=== PATIENT | female | born 1960 | race Two or more races ===

== ENCOUNTER 2017-01-31 06:51 | Day surgery (SDC) | payer SELFPAY ==
[2017-01-31] VITALS (9 sets, daily range): BP systolic 111–131; BP diastolic 50–78
[~2017-01-31] VITALS: Ht 165.1 cm; Wt 55.8 kg
[~2017-01-31 06:51] MED LIST: ASACOL HD800 MG ORAL; URSODIOL300 MG ORAL
[2017-01-31] MEDS ORDERED: Propofol 10mg/ml 20ml IV ONE (06:52)
[2017-01-31] MEDS ORDERED: Midazolam 2mg/2ml Inj ONE (06:52)
[2017-01-31] MEDS ORDERED: fentaNYL 100 mcg/2 mL IV ONE (06:52)
--- NOTE | 2017-01-31 08:18 | Pre-Procedure Note/Attestation ---
Pre-Procedure Note/Attestation Complete Prior to Procedure Planned Procedure: not applicable Procedure Narrative: esophagogastroduodenoscopy and colonoscopy Indications for Procedure Pre-Operative Diagnosis: abd pain, screening colon eval, UC Attestation I attest that I discussed the nature of the procedure; its benefits; risks and complications; and alternatives (and the risks and benefits of such alternatives ), prior to the procedure, with the patient (or the patient's legal banking representative). I attest that, if there was a reasonable possibility of needing a blood transfusion, the patient (or the patient's legal banking representative) was given the [facility] standardized written summary, pursuant to the [place]ie Blood Safety Act ([place] Health and Safety Code # 1645, as amended). I attest that I re-evaluated the patient just prior to the surgery and that there has been no change in the patient's H&P, except as documented below: EZEKIEL BURGOS Jan 31, 2017 08:18
--- NOTE | 2017-01-31 08:20 | Short Stay Surgery H&P ---
History of Present Illness History of Present Illness Chief Complaint abd pain ALIA Bass is a 56 year old female who was admitted on for Abd Pain, Primary Sclerosing Cholangitis Patient History Allergies: Coded Allergies: No Known Allergies (Verified Allergy, Unknown, 01/20/08) PAST MEDICAL HISTORY: (1) Ulcerative colitis Past Surgeries: Social History: Medication History Scheduled Mesalamine (Asacol Hd), 800 MG ORAL DAILY, (Reported) Ursodiol (Ursodiol*), 250 MG ORAL TID, (Reported) Review of Systems Cardiovascular: Reports: no symptoms Skeletal: Reports: no symptoms Gastrointestinal: Reports: gastro esophageal reflux disease Genitourinary: Reports: no symptoms Neurologic: Reports: no symptoms Endocrine: Reports: no symptoms Hematologic: Reports: no symptoms Physical Exam Vital Signs Last Vital Signs Date Time Temp Pulse Resp B/P Pulse Ox O2 Delivery O2 Flow Rate FiO2 01/31/17 07:28 97.0 81 20 111/50 96 Room Air Skin: normal HENT: normal Heart: normal Lungs: normal Abdomen: normal Extremities: normal Plan Plan of Care esophagogastroduodenoscopy colonoscopy Final Diagnosis: Attestation Are the patient's medical conditions optimized for surgery? Attestation Response: yes EZEKIEL BURGOS Jan 31, 2017 08:20
--- NOTE | 2017-01-31 09:09 | Anethesia Preoperative Eval ---
Anesthesia Pre-op PMH/ROS General Date of Evaluation: Jan 31, 2017 Time of Evaluation: 08:25 ASA Score: ASA 2 Mallampati Score Class I : Soft palate, uvula, fauces, pillars visible Class II: Soft palate, uvula, fauces visible Class III: Soft palate, base of uvula visible Class IV: Only hard plate visible Mallampati Classification: Class II Anesthesia History: none Social History: drug use Allergies: Coded Allergies: No Known Allergies (Verified Allergy, Unknown, 01/20/08) Anesthesia Pre-op Phys. Exam Physician Exam Last Vital Signs Date Time Temp Pulse Resp B/P Pulse Ox O2 Delivery O2 Flow Rate FiO2 01/31/17 07:28 97.0 81 20 111/50 96 Room Air Constitutional: NAD Neurologic: CN 2-12 intact Cardiovascular: RRR Respiratory: CTA Airway Exam Mallampati Score: Class II MO: full ROM: full Teeth: intact Anesthesia Pre-op A/P Risk Assessment & Plan Plan: MAC Pre-Antibiotics Given Within 1 Hr of Incision: Efra Brewer M.D. Jan 31, 2017 09:08
--- NOTE | 2017-01-31 09:12 | Immediate Post-Op Evaluation ---
Immediate Post-Op Evalulation Immediate Post-Op Evalulation Date of Evaluation: Jan 31, 2017 Time of Evaluation: 09:30 IV Fluids: 100 Estimated Blood Loss: 0 Blood Pressure Systolic: 109 Blood Pressure Diastolic: 71 Pulse Rate: 79 O2 Sat by Pulse Oximetry: 91 Pain Score (1-10): 0 Nausea: No Vomiting: No Patient Status: awake, reacts Given Within 1 Hr of Incision: No Efra Tinajero M.D. Jan 31, 2017 09:12
--- NOTE | 2017-01-31 09:14 | 48 Hour Post Anesthesia Eval ---
Post Anesthesia Evaluation Date of Evaluation: Jan 31, 2017 Time of Evaluation: 09:30 Blood Pressure Systolic: 114 0: 71 Pulse Rate: 16 Respiratory Rate: 16 Temperature (Fahrenheit): 97 O2 Sat by Pulse Oximetry: 91 Airway: patent Nausea: No Vomiting: No Hydration Status: adequate Mental Status/LOC: patient returned to baseline Follow-up care needed: ready to discharge Efra Tinajero M.D. Jan 31, 2017 09:14
--- NOTE | 2017-01-31 09:18 | Endoscopy Procedure Note ---
Endoscopy Procedure Note Indication for Procedure: uc Procedures Performed: EGD, colonoscopy Operative Findings/Diagnosis: gastritis Specimen: yes Pt Tolerated Procedure Well: Yes Estimated Blood Loss: none Anesthesiologist: see chart Anesthesia: MAC Implant(s) used?: No 50 yrs or older w/o bx or poly: Not Applicable 10yrs. F/U not recommended: Not Applicable EZEKIEL BURGOS Jan 31, 2017 09:18
[2017-01-31] MEDS ORDERED: LR 1000ml 1,000 ML IVLG SCH (09:38)
--- NOTE | 2017-01-31 11:45 | Procedure Note ---
DATE OF PROCEDURE: 01/31/2017 SURGEON: Armand Gavin M.D. PROCEDURE: Upper endoscopy with biopsy and colonoscopy with biopsy. ANESTHESIOLOGIST: Please see anesthesia sheet. INSTRUMENT: Olympus adult flexible upper endoscope and colonoscope. INDICATION: History of ulcerative colitis, chronic abdominal pain, and chronic gastroesophageal reflux disease. REASON FOR PROCEDURE: The procedure, risks, benefits, and possible consequences, including hemorrhage, aspiration, perforation and infection, and alternative treatments, were explained to the patient/legal guardian by Dr. Armand Gavin and the patient/legal guardian understood and accepted these risks. DESCRIPTION OF PROCEDURE: After informed consent was obtained and the patient was adequately sedated, Olympus upper endoscope was advanced from mouth into the second portion of the duodenum and retroflexion performed of the stomach. The patient had evidence of diffuse atrophic gastritis. Random biopsy from antrum and body was obtained to rule out H. pylori infection. Otherwise, the rest of the upper endoscopic examination grossly looked within normal limits. GE junction was found to be about 38 cm from the incisors. At this time, the upper endoscope was retrieved and the patient was turned over for colonoscopy. First, a rectal exam was performed, which was normal. Then, the scope was advanced from the rectum into the terminal ileum. Quality of prep was very good. The patient had normal terminal ileum. The colon looked normal. There was no active flare up of the ulcer colitis at this time. There was some chronic changes of the mucosa especially on the left colon suggestive of prior history of ulcerative colitis. Biopsy from cecum ascending colon, transverse colon, sigmoid colon was obtained from four quadrants. Retroflexion of rectum showed evidence of a few small nonbleeding internal hemorrhoids. The patient tolerated the procedure very well without any complications. SUMMARY OF FINDINGS: 1. Diffuse atrophic gastritis, status post biopsy. 2. Normal terminal ileum. 3. Normal colonic mucosa with some minimum changes in the left colon from prior ulcerative colitis. 4. Status post random biopsy of the cecum, ascending colon, transverse colon, and sigmoid colon. RECOMMENDATIONS: Follow up biopsy results and treat accordingly. Armand Gavin M.D. DR: EDI JOB#: [id number] CC:
== END 2017-01-31 10:15 | disposition home or self-care (01) ==
LOC: GAS 06:51
DX: K29.40 Chronic atrophic gastritis without bleeding (principal); K21.9 Gastro-esophageal reflux disease without esophagitis; K52.9 Noninfective gastroenteritis and colitis, unspecified; K64.8 Other hemorrhoids; D72.822 Plasmacytosis; K83.0 Cholangitis
CPT/HCPCS: 43239; 45380; 93005; J2250; J2704; J3010; 94003; 94150

== ENCOUNTER → 2019-03-25 | Day surgery (SDC) | payer SELFPAY ==
[~2019-03-25] VITALS: Ht 160 cm; Wt 54.4 kg
[2019-03-25] VITALS (7 sets, daily range): BP systolic 101–131; BP diastolic 63–79
[~2019-03-25] MED LIST changes: +ASPIR 8181 MG ORAL; +Atropine Inj 1mg/10ml Syr IV PRN; +BLOOD THINNER PO; +DiphenhydrAMINE 50mg/ml Inj IVP PRN; +LR 1000ml 1,000 ML IVLG SCH; +LR 1000ml ONE; +Lidocaine 1% MPF 10mg/ml 5ml ONE; +Midazolam 2mg/2ml Inj IVP PRN; +Propofol 200mg/20ml IV ONE; +fentaNYL 100 mcg/2 mL IV PRN
--- NOTE | 2019-03-25 08:50 | Anethesia Preoperative Eval ---
Anesthesia Pre-op PMH/ROS General Date of Evaluation: Mar 25, 2019 Time of Evaluation: 08:48 Anesthesiologist: jes ASA Score: ASA 3 Mallampati Score Class I : Soft palate, uvula, fauces, pillars visible Class II: Soft palate, uvula, fauces visible Class III: Soft palate, base of uvula visible Class IV: Only hard plate visible Mallampati Classification: Class II Surgeon: jessica Diagnosis: gerd, colon screening Surgical Procedure: egd/colonoscopy Anesthesia History: none Social History: current smoker Allergies: Coded Allergies: MORPHINE (Verified Allergy, Severe, DIZZINESS, 03/25/19) Medications: see eMAR Patient NPO?: Yes Past Medical History Cardiovascular: Reports: [place], other - coronary artery stent, hypercholesterolemia Gastrointestinal/Genitourinary: Reports: other - ulcerative colitis, kidney stones, liver disease, pacreatitis, PSxH Narrative: coronary artery stent, lumbar spine surgery, cholecystectomy, cataract sx Anesthesia Pre-op Phys. Exam Physician Exam Last Vital Signs Date Time Temp Pulse Resp B/P (MAP) Pulse Ox O2 Delivery O2 Flow Rate FiO2 03/25/19 11:15 Room Air 03/25/19 11:13 97.7 79 18 101/72 98 Constitutional: NAD Neurologic: CN 2-12 intact Cardiovascular: RRR Respiratory: CTA Gastrointestinal: S/NT/ND Airway Exam Mallampati Score: Class II MO: limited Neck: flexible TMD: 2fb ROM: limited Anesthesia Pre-op A/P Studies Pre-op Studies: EKG - nsr, lad Risk Assessment & Plan Assessment: asa3 Plan: mac Status Change Before Surgery: No Pre-Antibiotics Drug: Caryn Zamora MD Mar 25, 2019 08:50
--- NOTE | 2019-03-25 12:10 | Pre-Procedure Note/Attestation ---
Pre-Procedure Note/Attestation Complete Prior to Procedure Planned Procedure: not applicable Procedure Narrative: esophagogastroduodenoscopy and colonoscopy Indications for Procedure Pre-Operative Diagnosis: UC, abd pain, GERD Attestation I attest that I discussed the nature of the procedure; its benefits; risks and complications; and alternatives (and the risks and benefits of such alternatives ), prior to the procedure, with the patient (or the patient's legal lead generation representative). I attest that, if there was a reasonable possibility of needing a blood transfusion, the patient (or the patient's legal lead generation representative) was given the [facility] standardized written summary, pursuant to the [place] Blood Safety Act ([place] Health and Safety Code # 1645, as amended). I attest that I re-evaluated the patient just prior to the surgery and that there has been no change in the patient's H&P, except as documented below: Armand Gavin MD Mar 25, 2019 12:10
--- NOTE | 2019-03-25 12:16 | Short Stay Surgery H&P ---
History of Present Illness History of Present Illness Chief Complaint uc, abd pain HPI Ariadne Bass is a 58 year old female who was admitted on for Screening, Gerd Patient History Allergies: Coded Allergies: MORPHINE (Verified Allergy, Severe, DIZZINESS, 03/25/19) PAST MEDICAL HISTORY: (1) Ulcerative colitis Medication History Scheduled Aspirin* (Aspir 81*), 81 MG ORAL DAILY, (Reported) Mesalamine (Asacol Hd), 800 MG ORAL DAILY, (Reported) Ursodiol (Ursodiol*), 250 MG ORAL TID, (Reported) [Blood Thinner], Unknown Dose PO DAILY, (Reported) Review of Systems Cardiovascular: Reports: no symptoms Respiratory: Reports: no symptoms Skeletal: Reports: no symptoms Gastrointestinal: Reports: gastro esophageal reflux disease Genitourinary: Reports: no symptoms Neurologic: Reports: no symptoms Endocrine: Reports: no symptoms Hematologic: Reports: anemia Physical Exam Vital Signs Last Vital Signs Date Time Temp Pulse Resp B/P (MAP) Pulse Ox O2 Delivery O2 Flow Rate FiO2 03/25/19 11:15 Room Air 03/25/19 11:13 97.7 79 18 101/72 98 Skin: normal HENT: normal Heart: normal Lungs: normal Abdomen: normal Extremities: normal Plan Plan of Care EGD/colonoscopy Attestation Are the patient's medical conditions optimized for surgery? Attestation Response: yes Armand Gavin MD Mar 25, 2019 12:16
--- NOTE | 2019-03-25 12:55 | Endoscopy Procedure Note ---
Endoscopy Procedure Note General Indication for Procedure: uc, abd pain Procedures Performed: EGD, colonoscopy Operative Findings/Diagnosis: gastritis, hemorrhoids Specimen: yes Pt Tolerated Procedure Well: Yes Estimated Blood Loss: none Anesthesia Anesthesiologist: krishna Anesthesia: MAC Inserted Devices Implant(s) used?: No Quality Quality of Bowel Preparation: Good Did scope reach the cecum?: Yes Was there any complications?: No GI Core Measures 50 yrs or older w/o bx or poly: No 10yrs. F/U recommended: Yes If not recommended, why?: Above average risk 18 years or older w/prev. colo: Yes <3yrs. since last colonoscopy: No Armand Gavin MD Mar 25, 2019 12:55
--- NOTE | 2019-03-25 13:38 | Immediate Post-Op Evaluation ---
Immediate Post-Op Evalulation Immediate Post-Op Evalulation Procedure: egd/colonoscopy w/bx Date of Evaluation: Mar 25, 2019 Time of Evaluation: 13:27 IV Fluids: 350ml lr Blood Products: none Estimated Blood Loss: negligible Blood Pressure Systolic: 128 Blood Pressure Diastolic: 76 Pulse Rate: 74 Respiratory Rate: 18 O2 Sat by Pulse Oximetry: 100 Temperature (Fahrenheit): 98.1 Pain Score (1-10): 0 Nausea: No Vomiting: No Complications none Patient Status: awake, reacts, patent Hydration Status: adequate Drug: Caryn Zamora MD Mar 25, 2019 13:38
--- NOTE | 2019-03-25 13:39 | 48 Hour Post Anesthesia Eval ---
Post Anesthesia Evaluation Procedure: egd/colonoscopy w/bx Date of Evaluation: Mar 25, 2019 Time of Evaluation: 13:29 Blood Pressure Systolic: 131 0: 79 Pulse Rate: 68 Respiratory Rate: 18 Temperature (Fahrenheit): 98.1 O2 Sat by Pulse Oximetry: 100 Airway: patent Nausea: No Vomiting: No Pain Intensity: 0 Hydration Status: adequate Cardiopulmonary Status: stable Mental Status/LOC: patient returned to baseline Post-Anesthesia Complications: none Follow-up care needed: N/A Caryn Massey MD Mar 25, 2019 13:39
[2019-03-25 13:47] LABS: EOSINOPHILS % (AUTO) 1.4 % (0.0-3.0); HEMATOCRIT 39.3 % (37.0-47.0); HEMOGLOBIN 13.2 G/DL (12.0-16.0); MEAN CORPUSCULAR VOLUME 89 FL (80-99); MONOCYTES % (AUTO) 6.1 % (1.0-10.0); NEUTROPHILS % (AUTO) 51.6 % (45.0-75.0); PLATELET COUNT 246 K/UL (150-450); RED BLOOD COUNT 4.42 M/UL (4.20-5.40); RED CELL DISTRIBUTION WIDTH 11.1 % (11.6-14.8); WHITE BLOOD COUNT 7.2 K/UL (4.8-10.8)
[2019-03-25 14:02] LABS: ALANINE AMINOTRANSFERASE 25 U/L (12-78); ALBUMIN 3.6 G/DL (3.4-5.0); ALBUMIN/GLOBULIN RATIO 1.1 (1.0-2.7); ALKALINE PHOSPHATASE 109 U/L (46-116); ANION GAP 8 mmol/L (5-15); ASPARTATE AMINO TRANSFERASE 19 U/L (15-37); BILIRUBIN,TOTAL 0.4 MG/DL (0.2-1.0); BLOOD UREA NITROGEN 18 mg/dL (7-18); CALCIUM 9.3 MG/DL (8.5-10.1); CARBON DIOXIDE 29 MMOL/L (21-32); CHLORIDE 105 MMOL/L (98-107); CREATININE 0.8 MG/DL (0.55-1.30); POTASSIUM 3.4 MMOL/L (3.5-5.1); SODIUM 142 MMOL/L (136-145)
--- NOTE | 2019-03-25 19:00 | Procedure Note ---
DATE OF PROCEDURE: 03/25/2019 SURGEON: Armand Gavin M.D. PROCEDURE: Upper endoscopy with biopsy and colonoscopy. ANESTHESIA: Per Dr. Núñez. INSTRUMENT: Olympus flexible adult upper endoscope and colonoscope. INDICATION: History of ulcerative colitis, severe abdominal pain. REASON FOR PROCEDURE: The procedure, risks, benefits, and possible consequences, including hemorrhage, aspiration, perforation and infection, and alternative treatments, were explained to the patient/legal guardian by Dr. Armand Gavin and the patient/legal guardian understood and accepted these risks. DESCRIPTION OF PROCEDURE: After informed consent was obtained and the patient was adequately sedated, Olympus upper endoscope was advanced from mouth into the second portion of duodenum and retroflexion was performed in the stomach. The patient had evidence of multiple erosions in the prepyloric region and there was some streaky erythema suspicious, but not classical for watermelon stomach. Biopsy from this area was obtained. Otherwise, the rest of the stomach was grossly normal. removing the scope, we were able to see 2 inlet patches in the upper esophagus. At this time, the upper endoscope was retrieved and the patient was turned over for colonoscopy. First, rectal examination was performed, which was normal. Then the scope was advanced from rectum into the cecum documented by appendix orifice, ileocecal valve, and right upper quadrant palpation. Quality of prep was very good. The patient had no evidence of any polyp in this examination. No evidence of active severe colitis. The lining of the mucosa was maybe a touch inflamed possibly from either resolving ulcerative colitis or controlled ulcerative colitis, but no active bleeding. No severe colitis at this time. Retroflexion of rectum showed evidence of few small nonbleeding internal hemorrhoids. SUMMARY OF FINDINGS: 1. Multiple antral erosions. 2. Questionable watermelon stomach, status post biopsy. 3. Inlet patches. 4. Internal hemorrhoids. 5. No obvious active colitis at this time. RECOMMENDATIONS: Follow up biopsy results and treat accordingly. The patient to be on a PPI daily. Given prior history of CBD stones, the patient was referred for an MRCP. Armand Gavin M.D. DR: MARIANO JOB#: [id number] CC:
== END | disposition home or self-care (01) ==
LOC: GAS 10:30
DX: R10.9 Unspecified abdominal pain (principal); K51.90 Ulcerative colitis, unspecified, without complications; K64.8 Other hemorrhoids; Z79.82 Long term (current) use of aspirin; Z79.899 Other long term (current) drug therapy; K21.9 Gastro-esophageal reflux disease without esophagitis; K29.50 Unspecified chronic gastritis without bleeding; F17.200 Nicotine dependence, unspecified, uncomplicated; Z87.442 Personal history of urinary calculi; Z88.6 Allergy status to analgesic agent; Z95.5 Presence of coronary angioplasty implant and graft; E78.00 Pure hypercholesterolemia, unspecified; Z90.49 Acquired absence of other specified parts of digestive tract
CPT/HCPCS: 36415; 43239; 45378; 80053; 82378; 85025; J2704; 94003; 94150